=== PATIENT | male | born 1985 | race Caucasian/White ===

== ENCOUNTER 2020-04-29 23:54 | Emergency (ER) | payer MEDICAID, SELFPAY ==
[2020-04-29 23:55] VITALS: BP 156/96; PULSE 82; RESP 17; TEMP 36.7; O2SAT 99; BMI 27.3
--- NOTE | 2020-04-30 00:09 | ED.DCSUM_ITS ---
- ER Visit Summary Date of Service: 04/30/20 Chief Complaint: Nausea, dizzy History of Present Illness: The patient is a 34 M who complains of nausea and dizziness. Started a half an hour ago. He states he just all of a sudden did not feel well. He felt nauseous. He has had no vomiting or diarrhea. He currently denies any abdominal pain with this. He states he feels lightheaded like he is going to pass out. He has been eating normally. He states he had 3 meals today. No fevers. He drank 1 beer tonight. Otherwise he states he feels fine. He denies any chest pain or shortness of breath. Physical Examination: Vital signs reviewed. HEENT exam unremarkable. Heart is regular rate and rhythm without murmurs. Lungs are clear to auscultation. Abdomen is soft and nontender. Extremities reveal no edema. Skin exam normal. Neurologic exam normal. Test Results: White blood cell count is 14.9 hemoglobin 17.3. BUN is six and alkaline phosphatase is 143. His EKG is sinus rhythm with a rate of 67. There are no ST changes. Emergency Department Course and Treatment: Given IV fluids and Zofran IV. He feels much better. His abdomen is still soft and nontender. Patient be given Phenergan to take at home for nausea. He will try to hydrate himself. He will follow-up with his PCP. Treatment Plan: [] Disposition: Discharge Impression: Nausea, lightheaded This note was generated with [employer] dictation software. It may contain incorrect words, spelling, and punctuation that were not noted in review of the chart prior to signing ED Disposition - Plan for ED Patient: Disposition: Home or Assisted Living Instructions: ED Vomiting (Adult) Prescriptions: proMETHazine tablet [Phenergan] 25 mg PO Q6H PRN PRN #10 tab PRN Reason: Nausea Transmission Status: Pending to [facility] [address]. Referrals: NOT,DEFINED [NON-STAFF] -
--- NOTE | 2020-04-30 00:10 | EKG12_ITS ---
Test Reason : GEN ILL Blood Pressure : / mmHG Vent. Rate : 067 BPM Atrial Rate : 067 BPM P-R Int : 194 ms QRS Dur : 086 ms QT Int : 394 ms P-R-T Axes : 055 069 061 degrees QTc Int : 416 ms Normal sinus rhythm Normal ECG Confirmed by SLIM DESAI, MARY ([id number]), offline editor EDUARDO CHA ([id number]) on 05/04/2020 10:06:53 A M Referred By: WILMAR Confirmed By:GRISELDA SMALLS MD
[2020-04-30 00:16] LABS: Absolute Lymphocyte Count 4.25 X10^3/uL (0.83-4.51); Basophil# 0.11 X10^3/uL; Basophil% 0.7 % (0-1); Eosinophil# 0.49 X10^3/uL; Eosinophils% 3.3 % (0-5); Hemoglobin 17.3 g/dL (13.0-16.5); Lymphocyte # 4.25 X10^3/ul (4.0); Lymphocyte % 28.6 % (19-41); Mean Corp Hgb Conc 33.9 g/dL (32-36); Mean Corpuscular Hgb 31.8 pg (27.0-32.0); Mean Corpuscular Volume 93.8 fL (80-94); Mean Platelet Vol. 10.5 fl (6.2-12.0); Monocyte# 0.86 X10^3/uL; Monocyte% 5.8 % (0-10); NRBC Flagged by Analyzer 0 % (0-5); Neutrophil # 9.04 X10^3/uL (2.7-7.7); Neutrophil % 60.9 % (47-70); Platelet Count 283 K/mm3 (150-450); RBC Distribution Width CV 12.2 % (11.6-14.6); Red Blood Count 5.44 M/mm3 (4.6-6.2); White Blood Count 14.9 K/mm3 (4.4-11.0)
[2020-04-30] MEDS: Ondansetron 4 MG/2 ML Vial IV (00:18)
[2020-04-30] MEDS: 0.9% Normal Saline 1,000 ML 1000 ML IV (00:18)
[2020-04-30 00:43] LABS: ALB/GLOB Ratio 1.1 RATIO (0.9-2.4); AST(SGOT) 22 U/L (15-37); Alanine Aminotransfer ALT/SGPT 32 U/L (16-61); Albumin, Serum 4.4 g/dL (3.2-5.0); Alkaline Phosphatase 143 U/L (45-117); Anion Gap 6 (5-15); BUN 6 mg/dL (7-18); BUN/Creat Ratio 5.8 RATIO (10-20); Calcium,Total 8.9 mg/dL (8.5-10.1); Chloride 104 mmol/L (98-107); Creatinine, Serum 1.04 mg/dL (0.70-1.30); EST Glomerular Filtration Rate 87 mL/min (>60); Est Glom Filt Rate - Afr Amer 105 mL/min (>60); Estimated Creatinine Clearance 100.08 ml/min; Glucose 100 mg/dL (74-106); Lipase 151 U/L (73-393); Potassium 3.5 mmol/L (3.5-5.1); Protein, Total 8.4 g/dL (6.4-8.2); Sodium Level 140 mmol/L (136-145)
[2020-04-30 01:26] VITALS: PULSE 99; RESP 18; O2SAT 98
== END 2020-04-30 01:26 | disposition home or self-care (01) ==
PROVIDERS: Emergency Provider Emergency Medicine
DX: R11.0 Nausea (principal); R42 Dizziness and giddiness; Z72.0 Tobacco use
CPT/HCPCS: 80053; 83690; 85025; 93005; 96361; 96374; 99283; J7030; A4216; J2405